=== PATIENT | female | born 1975 | race Two or more races ===

== ENCOUNTER 2022-02-15 22:43 | Emergency (ER) | payer OTHER ==
[~2022-02-15] VITALS: Ht 157.5 cm; Wt 66.7 kg
[2022-02-16] MEDS ORDERED: CORTISPORIN EAR10 M1 OPHT ×2 (01:59→02:00)
[2022-02-16] MEDS ORDERED: AMOX-CLAV 875-1 EACH PO (01:59)
[2022-02-16] MEDS ORDERED: KETO10TA2 PO (01:59)
== END 2022-02-16 02:22 ==
LOC: ER 22:43
DX: H60.91 Unspecified otitis externa, right ear (principal); H92.01 Otalgia, right ear; J02.9 Acute pharyngitis, unspecified

== ENCOUNTER 2022-11-28 20:23 | Emergency (ER) | payer OTHER ==
[~2022-11-28] VITALS: Ht 160 cm; Wt 68.5 kg
[~2022-11-28 20:23] MED LIST: AMOX-CLAV 875-1 EACH PO; CORTISPORIN EAR10 M1 OPHT; KETO10TA2 PO
[2022-11-28] MEDS ORDERED: DICLOFENAC SODI75 MG PO (23:08)
== END 2022-11-29 00:08 | disposition home or self-care (01) ==
LOC: ER 20:23
DX: M25.562 Pain in left knee (principal)

== ENCOUNTER 2023-09-24 21:14 | Emergency (ER) | payer OTHER ==
[~2023-09-24] VITALS: Ht 157.5 cm; Wt 68.9 kg
[~2023-09-24 21:14] MED LIST changes: +DICLOFENAC SODI75 MG PO
[2023-09-24] MEDS ORDERED: KETOROLAC TROMETHAMINE 30 MG VIAL ONE (21:43)
[2023-09-24] MEDS ORDERED: KETOROLAC TROMETHAMINE 30 MG VIAL IM ONE (21:45)
[2023-09-24] MEDS ORDERED: TRAMADOL HCL 50 MG TABLET PO ONE (21:45)
== END 2023-09-24 22:52 | disposition home or self-care (01) ==
LOC: ER 21:15
DX: S89.90XA Unspecified injury of unspecified lower leg, initial encounter (principal); Y92.832 Beach as the place of occurrence of the external cause